=== PATIENT | female | born 1995 | race African-American/Black ===

== ENCOUNTER 2022-08-07 17:06 | Emergency (ER) | payer BC, SELFPAY ==
--- NOTE | ~2022-08-07 | CT_ITS ---
EXAMINATION: CT ABDOMEN AND PELVIS WITH CONTRAST CLINICAL INFORMATION: Right lower quadrant pain COMPARISON: None TECHNIQUE: Multidetector volumetric images were obtained from the superior aspect of the liver through the pubic symphysis following administration 85 mL of Omnipaque 350 intravenous contrast. Sagittal and coronal reformatted images were obtained on the technologist's workstation. Oral contrast: No This CT examination was performed using dose optimization techniques as appropriate, variously including the following: *Automated exposure control *Adjustment of mA and/or kV according to patient size (this includes techniques or standardized protocols for targeted exams where dose is matched to indication/reason for exam; i.e. extremities or head) *Use of iterative reconstruction technique DLP: 547 mGy-cm FINDINGS: LUNG BASES: The visualized lung bases are unremarkable. LIVER, GALLBLADDER, AND BILIARY TREE: The liver is normal in size, shape, and attenuation. No focal hepatic lesion or biliary ductal dilatation is present. There is minor nonspecific periportal edema without biliary ductal dilatation. The gallbladder is unremarkable with no evidence of radiopaque gallstones, gallbladder wall thickening, or obvious pericholecystic inflammatory changes. PANCREAS: Unremarkable. SPLEEN: Unremarkable. ADRENAL GLANDS: Unremarkable. KIDNEYS AND URETERS: The kidneys are normal in size, shape, and attenuation. No hydronephrosis, hydroureter, or calculi seen. No perinephric stranding. BLADDER: Unremarkable. GASTROINTESTINAL TRACT: The small and large bowel are notable for enlargement and plantar changes about the appendix which measures up to 11 mm. Tiny appendicolith suspected. No evidence of perforation.. No free fluid or fluid collections.. ABDOMINAL WALL: No significant hernia is appreciated. LYMPH NODES: Normal. VASCULAR: Unremarkable. PELVIC VISCERA: IUD in place without migration. OSSEOUS STRUCTURES: Unremarkable. CT/CT abdomen pelvis w IV con IMPRESSION: Imaging findings are highly suspicious for acute uncomplicated retrocecal appendicitis. Fleischner guidelines were followed.
--- NOTE | 2022-08-07 17:33 | ED.ABDPAIN ---
HPI - Abdominal Pain General Chief Complaint: Abdominal Pain <Neeru Montelongo CNP - Last Filed: 08/07/22 17:47> Stated Complaint: bloating abd pain <Neeru Montelongo CNP - Last Filed: 08/07/22 17:47> Time Seen by Provider: 08/07/22 18:08 <Neeru Montelongo CNP - Last Filed: 08/07/22 17:47> Source: patient <AIRAM Gaitan - Last Filed: 08/07/22 22:15> Mode of arrival: ambulatory <AIRAM Gaitan Last Filed: 08/07/22 22:15> Limitations: no limitations <AIRAM Gaitan Last Filed: 08/07/22 22:15> History of Present Illness HPI narrative: This is a 27-year-old female presenting to the emergency department with abdominal pain, nausea, diarrhea, subjective fevers and chills for few weeks worsening over the past few days. Patient tells me she recently had an outpatient CT scan done by her PCP in [facility], patient got a call for her to come to the emergency department as they were concerned for acute appendicitis. Patient went to a emergency department near her primary care provider's office who did not have access to the CT, they gave her IV antibiotics and was discharged home with Augmentin for 7 days. Patient tells me she decided to come here today because this is near her home, she also spoke to her PCPs office again which is concerned that patient has appendicitis with appendicolith.Her E Chart shows: CT impression reviewed from patient electronic chart:? dilated appendix with appendicolith and worrisome for acute uncomplicated appendicitis <AIRAM Gaitan - Last Filed: 08/07/22 22:15> Related Data Home Medications: Previous Rx's Medication Instructions Recorded ketorolac 10 mg tablet 10 mg PO TID PRN pain 5 days #15 08/07/22 tabs <Neeru Montelongo CNP - Last Filed: 08/07/22 17:47> Allergies/Adverse Reactions: Allergies Allergy/AdvReac Type Severity Reaction Status Date / Time No Known Allergies Allergy Unverified 04/03/20 19:45 [No Known Allergies*] <Neeru Montelongo CNP - Last Filed: 08/07/22 17:47> Review of Systems Review of Systems Constitutional : No Weight loss, + Fever, + Chills, + Fatigue, + Malaise ENT/Mouth : No sore throat, No Rhinorrhea Eyes: No Eye Pain, No Swelling, No Redness Cardiovascular : No Chest Pain, No SOB, No Dyspnea on Exertion, No Orthopnea, No Edema, No Palpitations Respiratory : No Cough, No Sputum, No Wheezing Gastrointestinal : No Nausea, No Vomiting, No Diarrhea, No Constipation, No abdominal Pain, No Hematochezia, No Melena Genitourinary : No Dysuria, No Urinary Frequency, No Hematuria, Musculoskeletal : No joint pain, No Myalgias, No Joint Swelling Skin : No Skin Lesions, No rash Neuro : No Weakness, No Numbness, No Dizziness, No Headache Psych : No Anxiety/Panic, No Depression All other systems reviewed and are negative <AIRAM Gaitan - Last Filed: 08/07/22 22:15> Yes all other systems are reviewed and are negative <AIRAM Gaitan - Last Filed: 08/07/22 22:15> FOR[facility]LY [facility] Past Medical History Attestation statement: The following information was validated with the patient. <AIRAM Gaitan - Last Filed: 08/07/22 22:15> Source: old records reviewed and nursing notes reviewed <AIRAM Gaitan - Last Filed: 08/07/22 22:15> Social History Social History: Social History Advance Directives: No Advance Directives Information Provided: No <Neeru Montelongo CNP - Last Filed: 08/07/22 17:47> Physical Exam ED Vital Signs: Vital Signs - 24 hr 08/07/22 17:35 08/07/22 19:19 Temperature 97.8 F 98.4 F Pulse Rate 77 60 Respiratory Rate 18 18 Blood Pressure 120/67 111/60 Pulse Oximetry 99 100 Oxygen Delivery Method Room Air Room Air BMI result Body Mass Index 22.8 <Neeru Montelongo CNP - Last Filed: 08/07/22 17:47> Vital Signs - 24 hr 08/07/22 17:35 08/07/22 19:19 Temperature 97.8 F 98.4 F Pulse Rate 77 60 Respiratory Rate 18 18 Blood Pressure 120/67 111/60 Pulse Oximetry 99 100 Oxygen Delivery Method Room Air Room Air BMI result Body Mass Index 22.8 vss <AIRAM Gaitan - Last Filed: 08/07/22 22:15> Appearance: Alert.? Oriented X3.? No acute distress.?Patient appears comfortable Head: Normocephalic, atraumatic, no step-offs or deformities Eyes: Pupils equal, round and reactive to light.? ENT: Pharynx normal.? Neck: Normal inspection.? Neck supple.? CVS: Normal heart rate and rhythm.? Pulses normal.? Respiratory: No respiratory distress.? Breath sounds normal.? Abdomen: Soft and + diffuse abdominal pain particularly to RLQ Skin: Skin warm and dry.? Normal skin color.? Normal skin turgor.? Extremities: No lower extremity edema.? No calf ttp. 5/5 strength to bilateral upper and lower extremities Back: No midline tenderness, no C-spine tenderness, full range of motion, no CVA tenderness bilaterally Neuro: Oriented X 3.? No motor deficit.? No sensory deficit. CN 2-12 intact <AIRAM Gaitan - Last Filed: 08/07/22 22:15> Course Course Course Narrative: This is an RME: Additional HPI, ROS, PE not included below will be deferred to primary provider. Patient is a 27-year-old female who presents emergency department for evaluation of abdominal pain x 2.5 weeks, nausea, diarrhea, no diarrhea, fevers, chills. Had outpatient CT yesterday from PCP performed in [place], [place], advised for patient to go to ED as there was concern for possible appendicitis. She presented to emergency department [place], we did not have access to the CT, she was given IV antibiotics, a physical exam was performed, and she was discharged home with oral antibiotics; Augmentin. Upon speaking with primary care provider's office today, CT scan was again reviewed, and she was advised to return back to the emergency department. She lives in this area, which is why she presents here today. CT impression reviewed from patient electronic chart: Findings suggestive of dilated appendix with appendicolith and worrisome for acute uncomplicated appendicitis PE: RLQ tenderness upon palpation Plan: labs, urinalysis, defer repeat CT at this time, pending labs, may consider imaging; CT v US <Neeru Montelongo CNP - Last Filed: 08/07/22 17:47> Reevaluation(s) Reevaluation #1: CBC within normal limits. Chemistry with no acute findings requiring intervention. Normal CRP and ESR. UA without infection. Urine negative. Patient continues to appear comfortable and in no acute distress. CT of the abdomen pelvis with highly suspicious findings for acute uncomplicated retrocecal appendicitis. I did have a conversation with general surgeon Dr. Dumas, his recommendations are as long as laboratory studies are okay and patient is comfortable and tolerating p.o. she can be discharged, she should continue taking Augmentin and should follow up with General surgery as soon as possible, I will instruct patient to call General surgery office on Tuesday to see him. I will give her strict return precautions and outlined on her discharge. Educated patient on diagnosis and treatment plan, answered all question, patient verbalizes understanding. At this time patient will be discharged home, advised to return with new or worsening symptoms. Educated on worrisome signs and symptoms and when to return. At this time I feel comfortable discharge home. <AIRAM Gaitan - Last Filed: 08/07/22 22:15> Time: 22:10 <AIRAM Gaitan - Last Filed: 08/07/22 22:15> Medical Decision Making Medical Decision Making [facility] Narrative: 1816 27-year-old female presents with right lower quadrant pain, nausea, subjective fevers and chills x2 and half weeks worsening over the past few days. Had an outpatient CT done by PCP that showed appendicitis. Physical exam with diffuse abd tenderness Concerns for appendicitis/appendicolith. Unlikely acute abdomen, unlikely diverticulitis, cholecystitis, pancreatitis. Will obtain basic labs, repeat CT scan, CRP, ESR, UA. Will consult surgery for further advice <AIRAM Gaitan - Last Filed: 08/07/22 22:15> Differential Diagnosis Differential Diagnoses: The differential diagnosis associated with the presentation includes <AIRAM Gaitan - Last Filed: 08/07/22 22:15> Concerns for appendicitis/appendicolith. Unlikely acute abdomen, unlikely diverticulitis, cholecystitis, pancreatitis. <AIRAM Gaitan - Last Filed: 08/07/22 22:15> Admission/Observation Consideration of admission/observation: Escalation of care including admission/observation considered <AIRAM Gaitan - Last Filed: 08/07/22 22:15> Consult Healthcare Provider Management of the patient was discussed with: [employer] () <AIRAM Gaitan - Last Filed: 08/07/22 22:15> Lab Data MDM Lab Attestation statement: I reviewed the patient's lab results. <AIRAM Gaitan - Last Filed: 08/07/22 22:15> Result Diagrams: 08/07/22 18:28 08/07/22 18:28 <Neeru Montelongo CNP - Last Filed: 08/07/22 17:47> Labs: Lab Results 08/07/22 08/07/22 08/07/22 Range/Units 18:28 18:28 18:28 WBC 10.5 (4.8-10.8) X10*3/uL RBC 4.28 (4.20-5.50) X10*6/uL Hgb 12.1 (12.0-16.0) g/dl Hct 37.6 (37.0-47.0) % MCV 87.9 (80.0-98.0) fL MCH 28.3 (27.0-33.0) pg MCHC 32.2 (31.0-35.0) g/dl RDW 12.6 (11.0-16.0) % Plt Count 294 (160-400) X10*3/uL MPV 10.9 (9.4-12.3) fL Immature Gran % (Auto) 0.2 (0.0-0.4) % Neut % (Auto) 62.7 (45-73) % Lymph % (Auto) 30.2 (20-40) % Imperial % (Auto) 4.6 (2-11) % Eos % (Auto) 1.9 (0-4) % Baso % (Auto) 0.4 (0-2) % Lymph # (Auto) 3.2 (1.2-4.9) X10*3/uL Imperial # (Auto) 0.5 (0.1-1.2) X10*3/uL Eos # (Auto) 0.2 (0.0-0.4) X10*3/uL Baso # (Auto) 0.0 (0.0-0.2) X10*3/uL Abs Immat Gran (auto) 0.02 (0.00-0.03) X10*3/uL Absolute Neuts (auto) 6.6 (2.0-8.3) x10*3/uL Absolute Nucleated RBC 0.000 (0.0-0.012) X10*3/uL Nucleated RBC % (auto) 0.0 (0.0-0.2) /100WBC ESR 8 (0-20) MM/HR Sodium 141 (135-145) mmol/L Potassium 4.0 (3.3-5.1) mmol/L Chloride 108 (96-108) mmol/L Carbon Dioxide 24 (22-29) mmol/L Anion Gap 13 (12-20) BUN 7 L (9-16) mg/dL Creatinine 0.80 (0.5-1.4) mg/dL Estim Creat Clear Calc 109.4 Estimated GFR > 60 Random Glucose 62 (60-115) mg/dL Lactic Acid (0.5-2.0) mmol/L Calcium 9.4 (8.4-10.2) mg/dL Total Bilirubin 0.3 (0.0-1.0) mg/dL AST 13 (5-31) U/L ALT 9 (0-31) U/L Alkaline Phosphatase 75 (39-117) U/L C-Reactive Protein < 0.04 (< or = 0.50) mg/dL Total Protein 6.7 (6.5-8.0) g/dL Albumin 4.0 (3.5-5.0) g/dL Urine Color Urine Appearance Urine pH (5.0-9.0) Ur Specific [place] (1.005-1.025) Urine Protein (Neg-Trace) mg/dL Urine Glucose (UA) (Negative) mg/dL Urine Ketones (Negative) mg/dL Urine Blood (Negative) Urine Nitrite (Negative) Ur Leukocyte Esterase (Negative) Urine Test (NEGATIVE) 08/07/22 08/07/22 08/07/22 Range/Units 18:28 19:25 19:25 WBC (4.8-10.8) X10*3/uL RBC (4.20-5.50) X10*6/uL Hgb (12.0-16.0) g/dl Hct (37.0-47.0) % MCV (80.0-98.0) fL MCH (27.0-33.0) pg MCHC (31.0-35.0) g/dl RDW (11.0-16.0) % Plt Count (160-400) X10*3/uL MPV (9.4-12.3) fL Immature Gran % (Auto) (0.0-0.4) % Neut % (Auto) (45-73) % Lymph % (Auto) (20-40) % Imperial % (Auto) (2-11) % Eos % (Auto) (0-4) % Baso % (Auto) (0-2) % Lymph # (Auto) (1.2-4.9) X10*3/uL Imperial # (Auto) (0.1-1.2) X10*3/uL Eos # (Auto) (0.0-0.4) X10*3/uL Baso # (Auto) (0.0-0.2) X10*3/uL Abs Immat Gran (auto) (0.00-0.03) X10*3/uL Absolute Neuts (auto) (2.0-8.3) x10*3/uL Absolute Nucleated RBC (0.0-0.012) X10*3/uL Nucleated RBC % (auto) (0.0-0.2) /100WBC ESR (0-20) MM/HR Sodium (135-145) mmol/L Potassium (3.3-5.1) mmol/L Chloride (96-108) mmol/L Carbon Dioxide (22-29) mmol/L Anion Gap (12-20) BUN (9-16) mg/dL Creatinine (0.5-1.4) mg/dL Estim Creat Clear Calc Estimated GFR Random Glucose (60-115) mg/dL Lactic Acid 1.4 (0.5-2.0) mmol/L Calcium (8.4-10.2) mg/dL Total Bilirubin (0.0-1.0) mg/dL AST (5-31) U/L ALT (0-31) U/L Alkaline Phosphatase (39-117) U/L C-Reactive Protein (< or = 0.50) mg/dL Total Protein (6.5-8.0) g/dL Albumin (3.5-5.0) g/dL Urine Color Yellow Urine Appearance Clear Urine pH 8.0 (5.0-9.0) Ur Specific [place] 1.020 (1.005-1.025) Urine Protein Negative (Neg-Trace) mg/dL Urine Glucose (UA) Negative (Negative) mg/dL Urine Ketones Negative (Negative) mg/dL Urine Blood Negative (Negative) Urine Nitrite Negative (Negative) Ur Leukocyte Esterase Negative (Negative) Urine Test NEGATIVE (NEGATIVE) <Neeru Montelongo, TREMAINE - Last Filed: 08/07/22 17:47> Lab Results 08/07/22 08/07/22 08/07/22 Range/Units 18:28 18:28 18:28 WBC 10.5 (4.8-10.8) X10*3/uL RBC 4.28 (4.20-5.50) X10*6/uL Hgb 12.1 (12.0-16.0) g/dl Hct 37.6 (37.0-47.0) % MCV 87.9 (80.0-98.0) fL MCH 28.3 (27.0-33.0) pg MCHC 32.2 (31.0-35.0) g/dl RDW 12.6 (11.0-16.0) % Plt Count 294 (160-400) X10*3/uL MPV 10.9 (9.4-12.3) fL Immature Gran % (Auto) 0.2 (0.0-0.4) % Neut % (Auto) 62.7 (45-73) % Lymph % (Auto) 30.2 (20-40) % Imperial % (Auto) 4.6 (2-11) % Eos % (Auto) 1.9 (0-4) % Baso % (Auto) 0.4 (0-2) % Lymph # (Auto) 3.2 (1.2-4.9) X10*3/uL Imperial # (Auto) 0.5 (0.1-1.2) X10*3/uL Eos # (Auto) 0.2 (0.0-0.4) X10*3/uL Baso # (Auto) 0.0 (0.0-0.2) X10*3/uL Abs Immat Gran (auto) 0.02 (0.00-0.03) X10*3/uL Absolute Neuts (auto) 6.6 (2.0-8.3) x10*3/uL Absolute Nucleated RBC 0.000 (0.0-0.012) X10*3/uL Nucleated RBC % (auto) 0.0 (0.0-0.2) /100WBC ESR 8 (0-20) MM/HR Sodium 141 (135-145) mmol/L Potassium 4.0 (3.3-5.1) mmol/L Chloride 108 (96-108) mmol/L Carbon Dioxide 24 (22-29) mmol/L Anion Gap 13 (12-20) BUN 7 L (9-16) mg/dL Creatinine 0.80 (0.5-1.4) mg/dL Estim Creat Clear Calc 109.4 Estimated GFR > 60 Random Glucose 62 (60-115) mg/dL Lactic Acid (0.5-2.0) mmol/L Calcium 9.4 (8.4-10.2) mg/dL Total Bilirubin 0.3 (0.0-1.0) mg/dL AST 13 (5-31) U/L ALT 9 (0-31) U/L Alkaline Phosphatase 75 (39-117) U/L C-Reactive Protein < 0.04 (< or = 0.50) mg/dL Total Protein 6.7 (6.5-8.0) g/dL Albumin 4.0 (3.5-5.0) g/dL Urine Color Urine Appearance Urine pH (5.0-9.0) Ur Specific [place] (1.005-1.025) Urine Protein (Neg-Trace) mg/dL Urine Glucose (UA) (Negative) mg/dL Urine Ketones (Negative) mg/dL Urine Blood (Negative) Urine Nitrite (Negative) Ur Leukocyte Esterase (Negative) Urine Test (NEGATIVE) 08/07/22 08/07/2223 Range/Units 18:28 19:25 19:25 WBC (4.8-10.8) X10*3/uL RBC (4.20-5.50) X10*6/uL Hgb (12.0-16.0) g/dl Hct (37.0-47.0) % MCV (80.0-98.0) fL MCH (27.0-33.0) pg MCHC (31.0-35.0) g/dl RDW (11.0-16.0) % Plt Count (160-400) X10*3/uL MPV (9.4-12.3) fL Immature Gran % (Auto) (0.0-0.4) % Neut % (Auto) (45-73) % Lymph % (Auto) (20-40) % [place] % (Auto) (2-11) % Eos % (Auto) (0-4) % Baso % (Auto) (0-2) % Lymph # (Auto) (1.2-4.9) X10*3/uL [place] # (Auto) (0.1-1.2) X10*3/uL Eos # (Auto) (0.0-0.4) X10*3/uL Baso # (Auto) (0.0-0.2) X10*3/uL Abs Immat Gran (auto) (0.00-0.03) X10*3/uL Absolute Neuts (auto) (2.0-8.3) x10*3/uL Absolute Nucleated RBC (0.0-0.012) X10*3/uL Nucleated RBC % (auto) (0.0-0.2) /100WBC ESR (0-20) MM/HR Sodium (135-145) mmol/L Potassium (3.3-5.1) mmol/L Chloride (96-108) mmol/L Carbon Dioxide (22-29) mmol/L Anion Gap (12-20) BUN (9-16) mg/dL Creatinine (0.5-1.4) mg/dL Estim Creat Clear Calc Estimated GFR Random Glucose (60-115) mg/dL Lactic Acid 1.4 (0.5-2.0) mmol/L Calcium (8.4-10.2) mg/dL Total Bilirubin (0.0-1.0) mg/dL AST (5-31) U/L ALT (0-31) U/L Alkaline Phosphatase (39-117) U/L C-Reactive Protein (< or = 0.50) mg/dL Total Protein (6.5-8.0) g/dL Albumin (3.5-5.0) g/dL Urine Color Yellow Urine Appearance Clear Urine pH 8.0 (5.0-9.0) Ur Specific [place] 1.020 (1.005-1.025) Urine Protein Negative (Neg-Trace) mg/dL Urine Glucose (UA) Negative (Negative) mg/dL Urine Ketones Negative (Negative) mg/dL Urine Blood Negative (Negative) Urine Nitrite Negative (Negative) Ur Leukocyte Esterase Negative (Negative) Urine Test NEGATIVE (NEGATIVE) <AIRAM Gaitan - Last Filed: 08/07/22 22:15> Independent Interpretation I performed an independent interpretation of an: CT Scan (CT/CT abdomen pelvis w IV con IMPRESSION: Imaging findings are highly suspicious for acute uncomplicated retrocecal appendicitis. Fleischner guidelines were followed.) <AIRAM Gaitan - Last Filed: 08/07/22 22:15> Radiology Impression Discussion of test interpretation with radiology: I have reviewed the radiologist's reading. <AIRAM Gaitan - Last Filed: 08/07/22 22:15> Prescription Management I considered prescription management with: Pain Medication (Toradol) <AIRAM Gaitan - Last Filed: 08/07/22 22:15> Core Measures AMI core measures followed: Yes <AIRAM Gaitan - Last Filed: 08/07/22 22:15> Measure exclusions: not indicated <AIRAM Gaitan Last Filed: 08/07/22 22:15> Medications Administered Discontinued Medications Generic Name Dose Route Start Last Admin Trade Name Freq PRN Reason Stop Dose Admin Sodium Chloride 1,000 mls @ 999 mls/hr 08/07/22 18:30 08/07/22 19:52 Ns IV 08/07/22 19:30 Infused .Q1H1M BRIE Infusion Iohexol 100 ml 08/07/22 19:59 08/07/22 19:59 Iohexol 350 Mg/Ml 100 Ml Infus..Btl IV 08/07/22 20:00 85 ml ONCE ONE Administration Ketorolac Tromethamine 30 mg 08/07/22 18:16 08/07/22 18:44 Ketorolac Tromethamine 15 Mg/Ml Vial IVPUSH 08/07/22 18:17 30 mg ONCE ONE Administration <Neeru Montelongo CNP - Last Filed: 08/07/22 17:47> Medications Administered Discontinued Medications Generic Name Dose Route Start Last Admin Trade Name Ladan PRN Reason Stop Dose Admin Sodium Chloride 1,000 mls @ 999 mls/hr 08/07/22 18:30 08/07/22 19:52 Ns IV 08/07/22 19:30 Infused .Q1H1M BRIE Infusion Iohexol 100 ml 08/07/22 19:59 08/07/22 19:59 Iohexol 350 Mg/Ml 100 Ml Infus..Btl IV 08/07/22 20:00 85 ml ONCE ONE Administration Ketorolac Tromethamine 30 mg 08/07/22 18:16 08/07/22 18:44 Ketorolac Tromethamine 15 Mg/Ml Vial IVPUSH 08/07/22 18:17 30 mg ONCE ONE Administration <AIRAM Gaitan - Last Filed: 08/07/22 22:15> Critical Care Time Critical Care Time Critical Care Time: Yes <AIRAM Gaitan - Last Filed: 08/07/22 22:15> Total Critical Care Time: 35 <AIRAM Gaitan - Last Filed: 08/07/22 22:15> Attestation: I attest to this time spent taking care of the patient, obtaining history, physical, reviewing labs, imaging, speaking to my attending, speaking to specialist. <AIRAM Gaitan - Last Filed: 08/07/22 22:15> Discharge Plan Discharge Clinical Impression: Abdominal pain, Retrocecal appendicitis <Neeru Montelongo CNP - Last Filed: 08/07/22 17:47> Patient Disposition: Home, Self-Care <Neeru Montelongo CNP - Last Filed: 08/07/22 17:47> Instructions: Abdominal Pain (ED) <Neeru Montelongo CNP - Last Filed: 08/07/22 17:47> Additional Instructions: Take your medications as prescribed. If you were prescribed antibiotics today, it is important that you take your medication to their entirety, do not skip any doses, do not finish them early. Follow-up with your primary care provider this week. Return to the emergency department with new or worsening symptoms. Such as fevers, chills, chest pain, shortness of breath, nausea, vomiting, dizziness, headache, vision changes, lethargy, not tolerating foods by mouth, worsening pain, changes in quality of pain. In case of emergency call 911 Toradol has been sent to your pharmacy, you tolerated this well in the department. Please take this as prescribed do not take this with ibuprofen, or other NSAIDs, do not mix this with alcohol. Side effects of this medication including increased risk for bleeding and possible kidney injury. Suggestions from up-to-date: Nonoperative management ? Nonoperative treatment is a strategy in which patients receive antibiotics with the aim of avoiding surgery. For these patients, appendectomy is reserved for those who do not have a response to antibiotics or have recurrence of appendicitis. Nonoperative management may offer certain benefits such as expedited recovery and reduced days away from work or other activities. In exchange, patients must be counselled and be willing to accept greater uncertainties of possible disease progression despite antibiotics, disease recurrence, or missed neoplasm <Neeru Montelongo CNP - Last Filed: 08/07/22 17:47> Prescriptions: New ketorolac 10 mg tablet 10 mg PO TID PRN (Reason: pain) 5 Days Qty: 15 0RF Rx Instructions: Tolerated IM in the department <Neeru Montelongo CNP - Last Filed: 08/07/22 17:47> Referrals: Babak Dumas MD [Physician] - 2 days <Neeru Montelongo CNP - Last Filed: 08/07/22 17:47> Stand Alone Forms: Work/School Release <Neeru Montelongo CNP - Last Filed: 08/07/22 17:47>
[2022-08-07 17:35] VITALS: BP 120/67; PULSE 77; RESP 18; TEMP 36.6; O2SAT 99; BMI 22.8
[2022-08-07 18:36] LABS: MANUAL DIFF FLAG NO
[2022-08-07 18:37] LABS: Basophils Percent Auto 0.4 % (0-2); Eosinophils Absolute Auto 0.2 X10*3/uL (0.0-0.4); Eosinophils Percent Auto 1.9 % (0-4); Hematocrit 37.6 % (37.0-47.0); Hemoglobin 12.1 g/dl (12.0-16.0); Imm Gran Abs Auto 0.02 X10*3/uL (0.00-0.03); Imm Gran Pct Auto 0.2 % (0.0-0.4); Lymphocytes Absolute Auto 3.2 X10*3/uL (1.2-4.9); Lymphocytes Percent Auto 30.2 % (20-40); Mean Corpuscular HGB Conc 32.2 g/dl (31.0-35.0); Mean Corpuscular Hemoglobin 28.3 pg (27.0-33.0); Mean Corpuscular Volume 87.9 fL (80.0-98.0); Mean Platelet Volume 10.9 fL (9.4-12.3); Monocytes Absolute Auto 0.5 X10*3/uL (0.1-1.2); Monocytes Percent Auto 4.6 % (2-11); Neutrophils Absolute Auto 6.6 x10*3/uL (2.0-8.3); Neutrophils Percent Auto 62.7 % (45-73); Platelet Count 294 X10*3/uL (160-400); Red Blood Count 4.28 X10*6/uL (4.20-5.50); Red Cell Distribution Width 12.6 % (11.0-16.0); White Blood Count 10.5 X10*3/uL (4.8-10.8)
[2022-08-07] MEDS: Ketorolac Tromethamine 15 MG/ML VIAL 30 MG IVPUSH (18:44)
[2022-08-07] MEDS: 0.9 % Sodium Chloride 1,000 ML 999 ML IV (18:45)
[2022-08-07 19:01] LABS: Lactic Acid 1.4 mmol/L (0.5-2.0)
[2022-08-07 19:11] LABS: Alanine Aminotransferase 9 U/L (0-31); Alkaline Phosphatase 75 U/L (39-117); Anion Gap 13 (12-20); Aspartate Amino Transferase 13 U/L (5-31); Bilirubin Total 0.3 mg/dL (0.0-1.0); Blood Urea Nitrogen 7 mg/dL (9-16); C Reactive Protein < 0.04 mg/dL (< or = 0.50); Calcium 9.4 mg/dL (8.4-10.2); Carbon Dioxide 24 mmol/L (22-29); Chloride 108 mmol/L (96-108); Creatinine Clr Calc Pharmacy 109.4; Estimated Glomerular Filt Rate > 60; Glucose Random 62 mg/dL (60-115); Sodium 141 mmol/L (135-145); Total Protein 6.7 g/dL (6.5-8.0)
[2022-08-07 19:19] VITALS: BP 111/60; PULSE 60; RESP 18; TEMP 36.9; O2SAT 100
[2022-08-07 19:36] LABS: Appearance Urine Clear; Color Urine Yellow; Glucose Urine UA Negative (Negative); Leukocyte Esterase Urine Negative (Negative); Nitrite Urine Negative (Negative); Urine Blood Negative (Negative); Urine Ketones Negative (Negative); Urine Protein Negative (Neg-Trace)
[2022-08-07 19:44] LABS: Erythrocyte Sedimentation Rate 8 MM/HR (0-20)
[2022-08-07 19:48] LABS: UPreg QC Valid YES; Urine Pregnancy NEGATIVE (NEGATIVE)
--- NOTE | 2022-08-07 19:54 | PC.NURSE ---
Assumed care for pt. Pt aox4 resting at the bedside. Breaths are even and unlabored. Reports abd pain, 5/10. Pt pending CT-scan. Loco continue to monitor.
[2022-08-07] MEDS: iohexoL 350 MG/ML 100 ML INFUS..BTL IV (19:59)
[2022-08-07 22:27] VITALS: BP 119/47; PULSE 68; RESP 12; TEMP 36.8; O2SAT 100
--- NOTE | 2022-08-07 22:31 | PC.NURSE ---
Pt aox4. Resting at the bedside in no apparent distress. Reports abd discomfort, 11/24. Denies N/V. Tolerating PO liquids with no difficulty.
--- NOTE | 2022-08-07 22:54 | PC.NURSE ---
IV line removed. Pt tolerated well. Discharge instructions reviewed with pt. Pt verbalizes understanding.
== END 2022-08-07 23:19 | disposition home or self-care (01) ==
PROVIDERS: Nurse Practitioner Family; Physician Assistant; Emergency Provider Internal Medicine
DX: K35.80 Unspecified acute appendicitis (principal); R10.31 Right lower quadrant pain
CPT/HCPCS: 36415; 74177; 80053; 81003; 81025; 83605; 85025; 85652; 86140; 87040; 96361; 96374; 99284; J1885; Q9967

== ENCOUNTER → 2022-08-11 09:31 | Outpatient (BNVA) | payer BC, SELFPAY | PROVIDERS: Visit Provider Surgery | DX: Z13.89 Encounter for screening for other disorder (principal) ==

== ENCOUNTER 2022-08-11 10:24 | Observation (INO) | payer BC, SELFPAY ==
[2022-08-11] VITALS (20 sets, daily range): BP systolic 103–146; BP diastolic 44–76; PULSE 62–95; RESP 16–28; TEMP 36.3–36.8; O2SAT 98–100; BMI 22.6
--- NOTE | 2022-08-11 10:49 | ED_ITS ---
HPI - Abdominal Pain General Chief Complaint: Abdominal Pain Stated Complaint: appendectomy Time Seen by Provider: 08/11/22 10:33 Source: patient Mode of arrival: ambulatory Limitations: no limitations History of Present Illness HPI narrative: 27 year old female diagnosed of appendicitis on 08/07/22, presents to emergency department, after follow up with Dr Dumas, general surgery, with plan for admission for surgery. Pt states she is NPO since before midnight. Serology, blood work and urine studies ordered for pending surgical case. Pt denies any recent illness, sick contacts, paresthesias, weakness, fever, chills, vomiting, constipation, headache, or vision changes. MD elicited complaint: abdominal pain Pertinent past history: other (appendicitis) Related Data Previous Rx's Medication Instructions Recorded ketorolac 10 mg tablet 10 mg PO TID PRN pain 5 days #15 08/07/22 tabs Allergies Allergy/AdvReac Type Severity Reaction Status Date / Time No Known Allergies Allergy Unverified 08/11/22 09:41 [No Known Allergies*] PMFSH Social History Social History Advance Directives: No Physical Exam ED Vital Signs: Vital Signs - 24 hr 08/11/22 10:39 08/11/22 10:42 Pulse Rate 81 81 Respiratory Rate 16 16 Blood Pressure 119/64 119/64 Pulse Oximetry 100 100 Oxygen Delivery Method Room Air Room Air BMI result Body Mass Index 22.6 Course Course Course Narrative: 1150: Plan for surgery at 2 pm. Medical Decision Making Medical Decision Making MDM Narrative: 27 year old female diagnosed of appendicitis on 08/07/22, presents to emergency department, after follow up with Dr Dumas, general surgery, with plan for admission for surgery. Pt states she is NPO since before midnight. Blood work, urine, and serology unremarkable. Dr Dumas in to assess and update pt. Plan for 2 pm surgery. Pt admitted to Dr Dumas's service. Lab Data 08/11/22 11:09 08/11/22 11:09 Labs: Lab Results 08/11/22 08/11/22 08/11/22 Range/Units 10:50 11:09 11:09 WBC 7.6 (4.8-10.8) X10*3/uL RBC 4.33 (4.20-5.50) X10*6/uL Hgb 12.2 (12.0-16.0) g/dl Hct 38.0 (37.0-47.0) % MCV 87.8 (80.0-98.0) fL MCH 28.2 (27.0-33.0) pg MCHC 32.1 (31.0-35.0) g/dl RDW 12.6 (11.0-16.0) % Plt Count 272 (160-400) X10*3/uL MPV 11.1 (9.4-12.3) fL Immature Gran % (Auto) 0.3 (0.0-0.4) % Neut % (Auto) 72.4 (45-73) % Lymph % (Auto) 21.5 (20-40) % [place] % (Auto) 3.7 (2-11) % Eos % (Auto) 1.7 (0-4) % Baso % (Auto) 0.4 (0-2) % Lymph # (Auto) 1.6 (1.2-4.9) X10*3/uL [place] # (Auto) 0.3 (0.1-1.2) X10*3/uL Eos # (Auto) 0.1 (0.0-0.4) X10*3/uL Baso # (Auto) 0.0 (0.0-0.2) X10*3/uL Abs Immat Gran (auto) 0.02 (0.00-0.03) X10*3/uL Absolute Neuts (auto) 5.5 (2.0-8.3) x10*3/uL Absolute Nucleated RBC 0.000 (0.0-0.012) X10*3/uL Nucleated RBC % (auto) 0.0 (0.0-0.2) /100WBC Sodium 139 (135-145) mmol/L Potassium 4.3 (3.3-5.1) mmol/L Chloride 108 (96-108) mmol/L Carbon Dioxide 26 (22-29) mmol/L Anion Gap 9 L (12-20) BUN 7 L (9-16) mg/dL Creatinine 0.84 (0.5-1.4) mg/dL Estim Creat Clear Calc 93.3 Estimated GFR > 60 Random Glucose 88 (60-115) mg/dL Calcium 9.5 (8.4-10.2) mg/dL Total Bilirubin 0.4 (0.0-1.0) mg/dL AST 16 (5-31) U/L ALT 8 (0-31) U/L Alkaline Phosphatase 66 (39-117) U/L Total Protein 6.6 (6.5-8.0) g/dL Albumin 3.8 (3.5-5.0) g/dL Urine Color Yellow Urine Appearance Clear Urine pH 6.0 (5.0-9.0) Ur Specific [place] 1.010 (1.005-1.025) Urine Protein Negative (Neg-Trace) mg/dL Urine Glucose (UA) Negative (Negative) mg/dL Urine Ketones Negative (Negative) mg/dL Urine Blood Negative (Negative) Urine Nitrite Negative (Negative) Ur Leukocyte Esterase Negative (Negative) Urine RBC 0-2 (0-2) /HPF Urine WBC 0-5 (0-5) /HPF Ur Squamous Epith Cells 0-2 (0-2) /HPF Urine Bacteria None Seen (None Seen) Hyaline Casts 0-2 (0-2) /LPF COVID-19 (DEE) (Negative) COVID-19 Clin Com 08/11/22 Range/Units 11:11 WBC (4.8-10.8) X10*3/uL RBC (4.20-5.50) X10*6/uL Hgb (12.0-16.0) g/dl Hct (37.0-47.0) % MCV (80.0-98.0) fL MCH (27.0-33.0) pg MCHC (31.0-35.0) g/dl RDW (11.0-16.0) % Plt Count (160-400) X10*3/uL MPV (9.4-12.3) fL Immature Gran % (Auto) (0.0-0.4) % Neut % (Auto) (45-73) % Lymph % (Auto) (20-40) % [place] % (Auto) (2-11) % Eos % (Auto) (0-4) % Baso % (Auto) (0-2) % Lymph # (Auto) (1.2-4.9) X10*3/uL [place] # (Auto) (0.1-1.2) X10*3/uL Eos # (Auto) (0.0-0.4) X10*3/uL Baso # (Auto) (0.0-0.2) X10*3/uL Abs Immat Gran (auto) (0.00-0.03) X10*3/uL Absolute Neuts (auto) (2.0-8.3) x10*3/uL Absolute Nucleated RBC (0.0-0.012) X10*3/uL Nucleated RBC % (auto) (0.0-0.2) /100WBC Sodium (135-145) mmol/L Potassium (3.3-5.1) mmol/L Chloride (96-108) mmol/L Carbon Dioxide (22-29) mmol/L Anion Gap (12-20) BUN (9-16) mg/dL Creatinine (0.5-1.4) mg/dL Estim Creat Clear Calc Estimated GFR Random Glucose (60-115) mg/dL Calcium (8.4-10.2) mg/dL Total Bilirubin (0.0-1.0) mg/dL AST (5-31) U/L ALT (0-31) U/L Alkaline Phosphatase (39-117) U/L Total Protein (6.5-8.0) g/dL Albumin (3.5-5.0) g/dL Urine Color Urine Appearance Urine pH (5.0-9.0) Ur Specific [place] (1.005-1.025) Urine Protein (Neg-Trace) mg/dL Urine Glucose (UA) (Negative) mg/dL Urine Ketones (Negative) mg/dL Urine Blood (Negative) Urine Nitrite (Negative) Ur Leukocyte Esterase (Negative) Urine RBC (0-2) /HPF Urine WBC (0-5) /HPF Ur Squamous Epith Cells (0-2) /HPF Urine Bacteria (None Seen) Hyaline Casts (0-2) /LPF COVID-19 (DEE) Negative (Negative) COVID-19 Clin Com See Note Discharge Plan Discharge Clinical Impression: Acute appendicitis Patient Disposition: Admitted As Inpatient
[2022-08-11 10:57] LABS: Appearance Urine Clear; Color Urine Yellow; Glucose Urine UA Negative (Negative); Leukocyte Esterase Urine Negative (Negative); Nitrite Urine Negative (Negative); Urine Blood Negative (Negative); Urine Ketones Negative (Negative); Urine Protein Negative (Neg-Trace)
[2022-08-11 10:59] LABS: Bacteria Urine None Seen (None Seen); Hyaline Casts Urine 0-2 /LPF (0-2); RBC Urine 0-2 /HPF (0-2); Squamous Epithelial Cell Urine 0-2 /HPF (0-2); WBC Urine 0-5 /HPF (0-5)
[2022-08-11 11:14] LABS: MANUAL DIFF FLAG NO
[2022-08-11 11:16] LABS: Basophils Percent Auto 0.4 % (0-2); Eosinophils Absolute Auto 0.1 X10*3/uL (0.0-0.4); Eosinophils Percent Auto 1.7 % (0-4); Hemoglobin 12.2 g/dl (12.0-16.0); Imm Gran Abs Auto 0.02 X10*3/uL (0.00-0.03); Imm Gran Pct Auto 0.3 % (0.0-0.4); Lymphocytes Absolute Auto 1.6 X10*3/uL (1.2-4.9); Lymphocytes Percent Auto 21.5 % (20-40); Mean Corpuscular HGB Conc 32.1 g/dl (31.0-35.0); Mean Corpuscular Hemoglobin 28.2 pg (27.0-33.0); Mean Corpuscular Volume 87.8 fL (80.0-98.0); Mean Platelet Volume 11.1 fL (9.4-12.3); Monocytes Absolute Auto 0.3 X10*3/uL (0.1-1.2); Monocytes Percent Auto 3.7 % (2-11); Neutrophils Absolute Auto 5.5 x10*3/uL (2.0-8.3); Neutrophils Percent Auto 72.4 % (45-73); Platelet Count 272 X10*3/uL (160-400); Red Blood Count 4.33 X10*6/uL (4.20-5.50); Red Cell Distribution Width 12.6 % (11.0-16.0); White Blood Count 7.6 X10*3/uL (4.8-10.8)
--- NOTE | 2022-08-11 11:29 | PC.NURSE ---
Coming from surgery follow up, ?appendectomy for today or tomorrow per surgical visit. Reporting diarrhea and bloating. IV established, labs drawn and sent.
[2022-08-11 11:30] LABS: COVID-19 Test Negative (Negative); IDNOW Serial# 16C4AD1C
[2022-08-11 11:42] LABS: Alanine Aminotransferase 8 U/L (0-31); Albumin Level 3.8 g/dL (3.5-5.0); Alkaline Phosphatase 66 U/L (39-117); Anion Gap 9 (12-20); Aspartate Amino Transferase 16 U/L (5-31); Bilirubin Total 0.4 mg/dL (0.0-1.0); Blood Urea Nitrogen 7 mg/dL (9-16); Calcium 9.5 mg/dL (8.4-10.2); Carbon Dioxide 26 mmol/L (22-29); Chloride 108 mmol/L (96-108); Creatinine Clr Calc Pharmacy 93.3; Estimated Glomerular Filt Rate > 60; Glucose Random 88 mg/dL (60-115); Potassium 4.3 mmol/L (3.3-5.1); Sodium 139 mmol/L (135-145); Total Protein 6.6 g/dL (6.5-8.0)
--- NOTE | 2022-08-11 12:10 | P.CONAN_ITS ---
[facility] Active Problems Active Problems: All Active Problems (Updated 08/11/22 @ 11:57 by Jenifer Martel NP) Acute appendicitis (Acute) Surgical History Surgical History No pertinent past surgical history History of Problems with Anesthesia: No Social History Social History Patient Tobacco Use Status: Never used Tobacco Meds Allergies Allergy/AdvReac Type Severity Reaction Status Date / Time No Known Allergies Allergy Verified 08/11/22 13:38 [No Known Allergies*] Active Medications: Current Medications Pharmacy Consult (Consult Rx Perform Med Rec) 1 each MISCELLANE ONCE PRN PRN Reason: Consult order Home Medications Medication Instructions Recorded Confirmed Last Taken Type No Known Home Meds 08/11/22 08/11/22 Unknown History Exam Exam Date and Time: August 11, 2022 1210 Height,Weight and Vital Signs: Height 5 ft 6 in Weight 63.503 kg Last Vital Signs Pulse 81 08/11/22 10:42 Resp 16 08/11/22 10:42 BP 119/64 08/11/22 10:42 Pulse Ox 100 08/11/22 10:42 O2 Del Method 08/11/22 10:42 Pertinent Lab Results Pertinent Lab Results: Laboratory Tests 08/11/22 08/11/22 08/11/22 10:50 11:09 11:09 WBC 7.6 RBC 4.33 Hgb 12.2 Hct 38.0 MCV 87.8 MCH 28.2 MCHC 32.1 RDW 12.6 Plt Count 272 MPV 11.1 Immature Gran % (Auto) 0.3 Neut % (Auto) 72.4 Lymph % (Auto) 21.5 [place] % (Auto) 3.7 Eos % (Auto) 1.7 Baso % (Auto) 0.4 Lymph # (Auto) 1.6 [place] # (Auto) 0.3 Eos # (Auto) 0.1 Baso # (Auto) 0.0 Abs Immat Gran (auto) 0.02 Absolute Neuts (auto) 5.5 Absolute Nucleated RBC 0.000 Nucleated RBC % (auto) 0.0 Sodium 139 Potassium 4.3 Chloride 108 Carbon Dioxide 26 Anion Gap 9 L BUN 7 L Creatinine 0.84 Estim Creat Clear Calc 93.3 Estimated GFR > 60 Random Glucose 88 Calcium 9.5 Total Bilirubin 0.4 AST 16 ALT 8 Alkaline Phosphatase 66 Total Protein 6.6 Albumin 3.8 Urine Color Yellow Urine Appearance Clear Urine pH 6.0 Ur Specific [place] 1.010 Urine Protein Negative Urine Glucose (UA) Negative Urine Ketones Negative Urine Blood Negative Urine Nitrite Negative Ur Leukocyte Esterase Negative Urine RBC 0-2 Urine WBC 0-5 Ur Squamous Epith Cells 0-2 Urine Bacteria None Seen Hyaline Casts 0-2 COVID-19 (DEE) COVID-19 Clin Com 08/11/22 11:11 WBC RBC Hgb Hct MCV MCH MCHC RDW Plt Count MPV Immature Gran % (Auto) Neut % (Auto) Lymph % (Auto) [place] % (Auto) Eos % (Auto) Baso % (Auto) Lymph # (Auto) [place] # (Auto) Eos # (Auto) Baso # (Auto) Abs Immat Gran (auto) Absolute Neuts (auto) Absolute Nucleated RBC Nucleated RBC % (auto) Sodium Potassium Chloride Carbon Dioxide Anion Gap BUN Creatinine Estim Creat Clear Calc Estimated GFR Random Glucose Calcium Total Bilirubin AST ALT Alkaline Phosphatase Total Protein Albumin Urine Color Urine Appearance Urine pH Ur Specific [place] Urine Protein Urine Glucose (UA) Urine Ketones Urine Blood Urine Nitrite Ur Leukocyte Esterase Urine RBC Urine WBC Ur Squamous Epith Cells Urine Bacteria Hyaline Casts COVID-19 (DEE) Negative COVID-19 Clin Com See Note Airway Mallampati Class: I TM Dist: >3cm Neck ROM: Full Loose/Missing/Broken Teeth: No Heart: RRR Lungs: CTA Assessment and Plan Assessment Anesthesia Assessment: Anesthesia Plan Discussed and Chart Reviewed Final Anesthetic Review History of Problems with Anesthesia: No NPO: Yes ASA Class: I and Emergency Final Preanesthetic Review: Meds/Allgs Chart Reviewed, Consent Obtained/Reviewed and Anes Risks/Benef Reviewed Patient Risk: Low Procedure Risk: Low Anesthetic Plan Anesthetic Plan: GA Disposition: Standard PACU
[2022-08-11] MEDS: ondansetron HCL 4 MG/2 ML VIAL IVPUSH ×2 (12:49→19:45)
[2022-08-11] MEDS: Lactated Ringers 1,000 ML 125 ML IVCONT (12:49)
--- NOTE | 2022-08-11 12:54 | P.HPGS_ITS ---
History of Present Illness History of Present Illness Date of Service: 08/11/22 Chief complaint: Appendicitis Narrative: Dina Rebollar is a 27 year old female [facility] [address] [place] [address] Office Visit Report Signed Patient: Dina Rebollar MR#: [id number] : 1995 Acct:[id number] Age/Sex: 27 / F ADM/SER Date: 08/11/22 Loc: HO.HGS ADM/SER Time:930 Attending Provider: Babak Dumas MD cc: Physician,Unknown ; Babak Dumas MD~ Intake Vital Signs ? 08/11/2308:40 Height 5 ft 9 in Weight 170 lb 3.15 oz BMI 25.1 Respiration 16 Intake Visit Reasons:?ER FU [place] Intake Note: Patient here for ER follow up. Patient reports on and off pain 10 with increase nausea and constipation. 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 ? Details The patient is a 27-year-old woman who is seen by way of the emergency department at [facility].? She reports that for about a month, she has had crampy abdominal pain, mucus per rectum but no blood.? She does relate a history for some number of years of GI complaints including constipation, but when her pain worsened, she went to an outside hospital last week and was noted to have appendicitis and started on antibiotics.? Through some inability to view the images, the patient was advised to go to a emergency room closer to her home, and she came to [facility] over the weekend.? She is noted to have a normal white count and a CT scan consistent with a retrocecal appendix.? Patient is been continuing on Augmentin and notes no interval improvement in her sy mptoms.? She is passing gas and tolerating the antibiotics, but she notes ongoing pain that is interfering with her life, sleep and work. As noted, she has a history of GI complaints including constipation and mucus per rectum.? She has never been evaluated by a rubber goods inspector tester for possible irritable bowel syndrome. ? PFSH Social History? Advance Directives:? No Review of Systems Const All systems reviewed & are unremarkable except as noted in HPI and below Reports as per HPI Physical Exam Vital Signs: Last Vital Signs Resp ?16 ?08/11/22 09:40 BMI result Body Mass Index ? 25.1? The patient is non-toxic & in good spirits NC/AT, PERRLA, EOMI Mood, affect & judgment all appear appropriate Sclera anicteric conjunctiva pink and moist Oropharynx is clear with no aphthous ulcers, Mallampati class 1, mucous memb ranes moist Neck is supple with no masses, adenopathy or bruits? Heart is regular, normal S1-S2 no rubs or murmurs Lungs are clear and equal anteriorly with no audible wheezing, rubs or dullness to percussion? Abdomen is overweight with no demonstrable hernias.? No HSM, rebound, rigidity, guarding, masses or bruits are present. Some right lower quadrant discomfort is noted but no peritoneal sign is present. Rectal exam is deferred Skin has good turgor and is free of rashes Extremities free of cyanosis clubbing edema Results Reviewed Results Reviewed: ER visit from 08/07/2022 including labs and diagnostic imaging is reviewed On CT, the patient appears to have a retrocecal appendicitis with appendicolith visualized.? There is no free air to suggest abscess. Assessment & Plan Assessment & Plan (1) Acute appendicitis: ?Code(s): K35.80 - Unspecified acute appendicitis Plan I reviewed the options with the patient and her and recommended allowing antibiotic treatment and explained about the inherent risk of operative intervention at this time and the tissue is exceedingly inflamed and friable.? Explained about the possible need for open surgery and possible ileocecectomy.? The need for an abdominal drain, nasogastric tube in prolonged hospitalization secondary to an ileus as well as the possible need for additional intervention secondary to abscess or other unforeseen complications were reviewed.? The possibility of appendiceal pathology such as tumor or malignancy was reviewed and apparently understood. Patient notes that she is feeling so poorly that she would like to proceed with surgery with the risks.? Given this, we will proceed with a laparoscopic appendectomy, possibly open, possible ileocectomy with the inherent risks of bleeding, infection, need for larger resection known as an ileocectomy was reviewed.? The possible postoperative issues of abscess, bleeding and anastomotic complications were also discussed and apparently understood.? The option of a 2nd opinion was also offered to the patient but declined. Based on [place] criteria, the patient may have irritable bowel syndrome but the passing of mucus and ongoing bowel symptoms and mucus per rectum will need to be investigated by a rubber goods inspector tester, in my opinion.? Patient's PCP will be advised of this recommendation.? The patient is directed to the emergency department to help facilitate additional workup an operative timing.? Her questions seemed to be satisfactorily answered and she seemed understand her options. Coding Level of Care Code New Pt Level 4 (15815) Diagnoses Acute appendicitis? K35.80 Documented By: Babak Dumas MD 08/11/22 0934 Signed By: <Electronically signed by Babak Dumas MD> 08/11/22 1055 PMFSH Social History Social History Advance Directives: No Meds Allergies Allergy/AdvReac Type Severity Reaction Status Date / Time No Known Allergies Allergy Unverified 08/11/22 09:41 [No Known Allergies*] Active Medications: Current Medications Hydromorphone HCl (Hydromorphone Hcl 0.5 Mg/0.5 Ml Syringe) 0.25 mg IVPUSH Q4H PRN; Protocol PRN Reason: Pain, Moderate (Pain Scale 4-6 Lactated Ringer's (Lr) 1,000 mls @ 125 mls/hr IVCONT .Q8H [facility] Last Admin: 08/11/22 12:49 Dose: 125 mls/hr Ondansetron HCl (Ondansetron Hcl 4 Mg/2 Ml Vial) 4 mg IVPUSH Q8H [facility] Last Admin: 08/11/22 12:49 Dose: 4 mg Pharmacy Consult (Consult Rx Perform Med Rec) 1 each MISCELLANE ONCE PRN PRN Reason: Consult order Sodium Chloride (0.9 % Sodium Chloride Flush 3 Ml Syringe) 3 ml IVFLUSH QSHIFT [facility] Physical Exam Vital Signs: Vital Signs: Last Vital Signs Pulse 81 01/25/23 10:42 Resp 16 08/11/22 10:42 BP 119/64 08/11/22 10:42 Pulse Ox 100 08/11/22 10:42 O2 Del Method 08/11/22 10:42 BMI result Body Mass Index 22.6 The patient is non-toxic & in good spirits NC/AT, PERRLA, EOMI Mood, affect & judgment all appear appropriate Sclera anicteric conjunctiva pink and moist Oropharynx is clear with no aphthous ulcers, Mallampati class 1, mucous membranes moist Neck is supple with no masses, adenopathy or bruits? Heart is regular, normal S1-S2 no rubs or murmurs Lungs are clear and equal anteriorly with no audible wheezing, rubs or dullness to percussion? Abdomen is overweight with no demonstrable hernias.? No HSM, rebound, rigidity, guarding, masses or bruits are present. Some right lower quadrant discomfort is noted but no peritoneal sign is present. Rectal exam is deferred Skin has good turgor and is free of rashes Extremities free of cyanosis clubbing edema Results Results Labs: Short CBC 08/11/22 Range/Units 11:09 WBC 7.6 (4.8-10.8) X10*3/uL Hgb 12.2 (12.0-16.0) g/dl Hct 38.0 (37.0-47.0) % Plt Count 272 (160-400) X10*3/uL BMP 08/11/22 11:09 Sodium 139 Potassium 4.3 Chloride 108 Carbon Dioxide 26 BUN 7 L Creatinine 0.84 Calcium 9.5 Liver Function 08/11/22 Range/Units 11:09 Total Bilirubin 0.4 (0.0-1.0) mg/dL AST 16 (5-31) U/L ALT 8 (0-31) U/L Alkaline Phosphatase 66 (39-117) U/L Albumin 3.8 (3.5-5.0) g/dL Urine 08/11/22 Range/Units 10:50 Urine Color Yellow Urine Appearance Clear Urine pH 6.0 (5.0-9.0) Ur Specific [place] 1.010 (1.005-1.025) Urine Protein Negative (Neg-Trace) mg/dL Urine Glucose (UA) Negative (Negative) mg/dL Assessment and Plan (1) Acute appendicitis: Status: Acute Plan Plan I reviewed the options with the patient and her and recommended allowing antibiotic treatment and explained about the inherent risk of operative intervention at this time and the tissue is exceedingly inflamed and friable.? Explained about the possible need for open surgery and possible ileocecectomy.? The need for an abdominal drain, nasogastric tube in prolonged hospitalization secondary to an ileus as well as the possible need for additional intervention secondary to abscess or other unforeseen complications were reviewed.? The possibility of appendiceal pathology such as tumor or malignancy was reviewed and apparently understood. Patient notes that she is feeling so poorly that she would like to proceed with surgery with the risks.? Given this, we will proceed with a laparoscopic roselyn endectomy, possibly open, possible ileocectomy with the inherent risks of bleeding, infection, need for larger resection known as an ileocectomy was reviewed.? The possible postoperative issues of abscess, bleeding and anastomotic complications were also discussed and apparently understood.? The option of a 2nd opinion was also offered to the patient but declined. Based on [place] criteria, the patient may have irritable bowel syndrome but the passing of mucus and ongoing bowel symptoms and mucus per rectum will need to be investigated by a rubber goods inspector tester, in my opinion.? Patient's PCP will be advised of this recommendation.? The patient is directed to the emergency department to help facilitate additional workup an operative timing.? Her questions seemed to be satisfactorily answered and she seemed understand her options. Due to insurance reasons, the patient was referred back to the emergency department for admission and timely surgery. Time Spent With Patient Time: Total time managing care of this patient today ____ minutes. Quality Stroke Does the patient have a stroke diagnosis?: No VTE Prior VTE?: No VTE Risk Level:: Surgical - low VTE Device Contraindication: N/A - Device Ordered VTE Drug Contraindication: Treatment Not Indicated Procedures Date of Service Date of Service: 08/11/22
--- NOTE | 2022-08-11 12:59 | P.OP_ITS ---
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 A retrocecal appendix that was not perfo rated was densely adherent to the cecum.] Indications: [The patient is a 27-year-old woman who denies significant past medical history but does have some chronic lower GI complaints consistent with i rritable bowel syndrome. She was seen in an outside hospital emergency department and identified to have acute appendicitis. She was started on oral antibiotics and sent for follow-up locally here. The patient is had normal white blood cell count and soft abdomen, however she reports unrelenting pains. I recommended continued medical management since this is been going on for several days and will be technically challenging, but the patient wanted to proceed with operative intervention. Consequently, I explained about the plan for a laparoscopic appendectomy, possible open appendectomy and possible ileocecectomy with the inherent risks of bleeding, infection, need for open surgery and a bowel resection, anastomotic complications, ileus, prolonged hospitalization, the possible need for nasogastric tube or drain placement. The patient had some time to discuss options with her and was even given the option of a 2nd opinion. She wanted to proceed with surgery.] Procedure: [The patient was identified in the preoperative holding area again in operating room 2. She had voided her urinary bladder station cook, sequential compression stockings were in place and she received IV cefotetan. She was induced & general endotracheal anesthesia administered with excellent effect and her left arm tucked. An appropriate time-out confirming the procedure and equipment was performed. Preemptive local of Marcaine 0.5% with epinephrine was used at all trocar insertion sites. I began at the supraumbilical midline and after infiltrating local, made a transverse 5 mm skin incision and placed a Veress needle without incident. An appropriate drop test was then performed and a pneumoperitoneum of 15 mmHg was obtained using carbon dioxide. Opening pressure was 5 mmHg. After attaining a pneumoperitoneum to 15 mmHg, the Veress needle was removed and a 5 mm Optiview trocar were a 30 degree 5 mm laparoscopic was used to access the abdomen without incident. Upon entering the abdomen, there was no evidence of injury from the Veress needle, however unusual adhesions from the colon and cecum to the anterior row lateral abdominal wall was present. Next, a 5 mm suprapubic and 12 mm left lower quadrant port were placed using preemptive analgesia and direct laparoscopic vision. The patient was then positioned in Trendelenburg and banked left. Scissors were used to carefully excise the adhesions that were noted on entry. Care was taken to avoid injury to the cecum, ascending colon and the terminal ileum. This lysis of adhesions was required to expose the retrocecal appendix and careful dissection towards the line of Toldt was performed in the cecal area and then up the proximal ascending colon. The appendiceal base was identified in the posterior cecum and a palpable appendicolith present. Additional adhesions from the terminal ileum to the cecum had to carefully be lysed and then a window was made across the base of the appendix on the cecum. An Endo- WIL purple 30 stapler was used to divide the appendiceal base on the cecum with good hemostasis and closure. Next, given the density of the mesoappendix and the inflamed appendix to the retrocecal colon, slow dissection carefully preserving the cecal wall was performed and the mesoappendix was carefully divided with a 5 mm LigaSure. Once the specimen was delivered, it was placed in an Endo-Catch bag and delivered through the 12 mm port. The suction marketing support assistant was used to copiously irrigate the retrocecal area and the cecum return to its normal anatomic location. Hemostasis was good and re-evaluation of the appendiceal/cecal base confirmed adequacy of closure. In assessing for any evidence of bile staining or inferred an enterotomy, none was found. The abdomen was then carefully inspected under lower pressure of 9 mm and then the trocars removed. The 12 mm trocar fascia was closed with 0 Polysorb sutures and skin closed with 4-0 Monocryl subcuticular sutures. The abdomen was then washed and dried, Mastisol and Steri-Strips applied followed by sterile dressings. Patient tolerated the procedure well and was sent extubated the recovery in stable condition, all sponge needle instrument counts were correct x2 The patient's annual was called that [phone] and apprised of the operative findings and outcome. His questions seemed to be satisfactorily answered.]
[2022-08-11 13:01] LABS: UPreg QC Valid YES; Urine Pregnancy NEGATIVE (NEGATIVE)
--- NOTE | 2022-08-11 13:17 | PC.NURSE ---
Report given to surgery
--- NOTE | 2022-08-11 15:59 | PHA.MEDREC ---
Pharmacy Consult ? Medication Reconciliation Pharmacy has completed the medication reconciliation.
[2022-08-11] MEDS: HYDROmorphone HCl 0.5 MG/0.5 ML SYRINGE 0.25 MG IVPUSH ×3 (16:35→21:35)
[2022-08-11] MEDS: oxyCODONE HCl Immed Release 5 MG TABLET PO (18:14)
[2022-08-11] MEDS: Docusate Sodium 100 MG CAPSULE 200 MG PO (19:49)
[2022-08-11] MEDS: Acetaminophen 325 MG TABLET 650 MG PO (19:49)
[2022-08-11] MEDS: Lactated Ringers 1,000 ML 80 ML IVCONT (19:56)
[2022-08-12 04:00] VITALS: BP 128/58; PULSE 80; RESP 16; TEMP 36.6; O2SAT 99
[2022-08-12] MEDS: HYDROmorphone HCl 0.5 MG/0.5 ML SYRINGE 0.25 MG IVPUSH ×2 (04:34→10:28)
[2022-08-12 07:32] LABS: MANUAL DIFF FLAG NO
[2022-08-12 07:38] LABS: Basophils Percent Auto 0.2 % (0-2); Hemoglobin 11.6 g/dl (12.0-16.0); Imm Gran Abs Auto 0.06 X10*3/uL (0.00-0.03); Imm Gran Pct Auto 0.3 % (0.0-0.4); Lymphocytes Absolute Auto 1.5 X10*3/uL (1.2-4.9); Lymphocytes Percent Auto 8.3 % (20-40); Mean Corpuscular HGB Conc 32.2 g/dl (31.0-35.0); Mean Corpuscular Hemoglobin 28.3 pg (27.0-33.0); Mean Corpuscular Volume 87.8 fL (80.0-98.0); Mean Platelet Volume 11.2 fL (9.4-12.3); Monocytes Absolute Auto 0.9 X10*3/uL (0.1-1.2); Monocytes Percent Auto 4.8 % (2-11); Neutrophils Absolute Auto 15.6 x10*3/uL (2.0-8.3); Neutrophils Percent Auto 86.4 % (45-73); Platelet Count 284 X10*3/uL (160-400); Red Cell Distribution Width 12.8 % (11.0-16.0); White Blood Count 18.1 X10*3/uL (4.8-10.8)
--- NOTE | 2022-08-12 07:52 | PM.PNGS ---
Subjective Subjective Date of Service: 08/12/22 Patient reports: feels better, still having pain and tolerating liquids well Interval history: The patient is seen at approximately 715 this morning. She is comfortable reports both shoulder pain and incisional pain. Overall, she reports that the presenting pain from last week and from yesterday in the office has improved and been replaced by incisional pain. She denies any nausea but did experience some vomiting immediate after receiving IV Dilaudid. She notes that in the past, she has had Vicodin for dental procedures and tolerated it with no nausea or vomiting, however would prefer to avoid any narcotics at this point. She otherwise denies pain in her chest, trouble breathing. Physical Exam Vital Signs: Vital Signs: Last Vital Signs Temp 97.8 F 08/12/22 04:00 Pulse 80 08/12/22 04:00 Resp 16 08/12/22 04:00 BP 128/58 L 08/12/22 04:00 Pulse Ox 99 08/12/22 04:00 O2 Del Method 08/12/22 04:00 O2 Flow Rate 1 08/11/22 20:00 BMI result Body Mass Index 22.6 On exam she is in good spirits and nontoxic She has no respiratory distress Her abdomen has some incisional tenderness which is appropriate and no peritoneal sign to percussion is present Dressings are clean dry and intact Objective Data Active Medications Acetaminophen (Acetaminophen 325 Mg Tablet) 650 mg PO Q4H PRN PRN Reason: Pain, Mild (Pain Scale 1-3) Last Admin: 08/11/22 19:49 Dose: 650 mg Documented By: YARA Albuterol Sulfate (Albuterol Sulfate (0.083%) 2.5 Mg/3 Ml Vial.Neb) 2.5 mg INHALE ONCE PRN PRN Reason: Wheezing Docusate Sodium (Docusate Sodium 100 Mg Capsule) 200 mg PO BID BIRE Last Admin: 08/11/22 19:49 Dose: 200 mg Documented By: YARA Fentanyl (Fentanyl Citrate/Pf 100 Mcg/2 Ml Vial) 25 mcg IVPUSH Q5M PRN; Protocol PRN Reason: Pain, Moderate (Pain Scale 4-6 Hydromorphone HCl (Hydromorphone Hcl 0.5 Mg/0.5 Ml Syringe) 0.25 mg IVPUSH Q5M PRN; Protocol PRN Reason: Pain, Severe (Pain Scale 7-10) Last Admin: 08/11/22 16:42 Dose: 0.25 mg Documented By: PAL Hydromorphone HCl (Hydromorphone Hcl 0.5 Mg/0.5 Ml Syringe) 0.25 mg IVPUSH Q2H PRN; Protocol PRN Reason: Pain, Moderate (Pain Scale 4-6 Last Admin: 08/12/22 04:34 Dose: 0.25 mg Documented By: SEFERINO Lactated Ringer's (Lr) 1,000 mls @ 50 mls/hr IVCONT .Q20H [facility] Last Admin: 08/11/22 19:56 Dose: 80 mls/hr Documented By: YARA Ondansetron HCl (Ondansetron Hcl 4 Mg/2 Ml Vial) 4 mg IVPUSH ONCE PRN PRN Reason: Nausea and Vomiting Ondansetron HCl (Ondansetron Hcl 4 Mg/2 Ml Vial) 4 mg IVPUSH Q6H PRN PRN Reason: Nausea and Vomiting Last Admin: 08/11/22 19:45 Dose: 4 mg Documented By: YARA Pharmacy Consult (Consult Rx Perform Med Rec) 1 each MISCELLANE ONCE PRN PRN Reason: Consult order Sodium Chloride (0.9 % Sodium Chloride Flush 3 Ml Syringe) 3 ml IVFLUSH [facility] Last Admin: 08/11/22 22:56 Dose: Not Given Documented By: SEFERINO Non-Admin Reason: IV Running Sodium Chloride (0.9 % Sodium Chloride Flush 3 Ml Syringe) 3 ml IVFLUSH [facility] Last Admin: 08/11/22 22:56 Dose: Not Given Documented By: SEFERINO Non-Admin Reason: Duplicate Order Labs 08/12/22 07:20 08/11/22 11:09 Labs: Laboratory Results - last 24 hr 08/11/22 08/11/22 08/11/22 10:50 10:50 11:09 MCV 87.8 MCH 28.2 MCHC 32.1 RDW 12.6 Plt Count 272 MPV 11.1 Immature Gran % (Auto) 0.3 Neut % (Auto) 72.4 Lymph % (Auto) 21.5 [place] % (Auto) 3.7 Eos % (Auto) 1.7 Baso % (Auto) 0.4 Lymph # (Auto) 1.6 [place] # (Auto) 0.3 Eos # (Auto) 0.1 Baso # (Auto) 0.0 Abs Immat Gran (auto) 0.02 Absolute Neuts (auto) 5.5 Absolute Nucleated RBC 0.000 Nucleated RBC % (auto) 0.0 Anion Gap Estim Creat Clear Calc Estimated GFR Random Glucose Calcium Total Bilirubin AST ALT Alkaline Phosphatase Total Protein Albumin Urine Color Yellow Urine Appearance Clear Urine pH 6.0 Ur Specific [place] 1.010 Urine Protein Negative Urine Glucose (UA) Negative Urine Ketones Negative Urine Blood Negative Urine Nitrite Negative Ur Leukocyte Esterase Negative Urine RBC 0-2 Urine WBC 0-5 Ur Squamous Epith Cells 0-2 Urine Bacteria None Seen Hyaline Casts 0-2 Urine Test NEGATIVE COVID-19 (DEE) COVID-19 [facility] 08/11/22 08/11/22 08/12/22 11:09 11:11 07:20 MCV 87.8 MCH 28.3 MCHC 32.2 RDW 12.8 Plt Count 284 MPV 11.2 Immature Gran % (Auto) 0.3 Neut % (Auto) 86.4 H Lymph % (Auto) 8.3 L [place] % (Auto) 4.8 Eos % (Auto) 0.0 Baso % (Auto) 0.2 Lymph # (Auto) 1.5 [place] # (Auto) 0.9 Eos # (Auto) 0.0 Baso # (Auto) 0.0 Abs Immat Gran (auto) 0.06 H Absolute Neuts (auto) 15.6 H Absolute Nucleated RBC 0.000 Nucleated RBC % (auto) 0.0 Anion Gap 9 L Estim Creat Clear Calc 93.3 Estimated GFR > 60 Random Glucose 88 Calcium 9.5 Total Bilirubin 0.4 AST 16 ALT 8 Alkaline Phosphatase 66 Total Protein 6.6 Albumin 3.8 Urine Color Urine Appearance Urine pH Ur Specific [place] Urine Protein Urine Glucose (UA) Urine Ketones Urine Blood Urine Nitrite Ur Leukocyte Esterase Urine RBC Urine WBC Ur Squamous Epith Cells Urine Bacteria Hyaline Casts Urine Test COVID-19 (DEE) Negative COVID-19 [facility] See Note Procedures Date of Service Date of Service: 08/12/22 Progress Note: A&P Assessment and plan (1) Acute appendicitis: Status: Acute Plan Advanced diet KVO IVF Labs noted. It is unclear whether this is secondary to the acute phase reaction stress of the operation and expected versus other pathology. Will try advancing diet and repeat labs this afternoon at 03:00 o'clock. The patient lacks tachycardia or hemodynamic instability suggestive of staple line leak or enterotomy, but will monitor for now. 0815: pt apprised of plan to recheck labs; questions answered 1305: tolerated a few bites of lunch, no flatus. Pt requested I update her , Master, at the bedside. Will reassess on afternoon rounds. Check CBCD at 1500 Time Spent With Patient Time: Total time managing care of this patient today ____ minutes. Quality Stroke Does the patient have a stroke diagnosis?: No VTE Prior VTE?: No VTE Risk Level:: Surgical - low VTE Device Contraindication: N/A - Device Ordered VTE Drug Contraindication: Treatment Not Indicated
[2022-08-12 07:56] LABS: Anion Gap 12 (12-20); Blood Urea Nitrogen 8 mg/dL (9-16); Calcium 9.6 mg/dL (8.4-10.2); Carbon Dioxide 25 mmol/L (22-29); Chloride 106 mmol/L (96-108); Creatinine Clr Calc Pharmacy 99.2; Estimated Glomerular Filt Rate > 60; Glucose Random 99 mg/dL (60-115); Potassium 4.5 mmol/L (3.3-5.1); Sodium 138 mmol/L (135-145)
[2022-08-12 07:59] VITALS: BP 109/61; PULSE 63; RESP 17; TEMP 36.7; O2SAT 99
--- NOTE | 2022-08-12 08:41 | MHC.CM.PN ---
Addendum entered by Ann Ivory RN 08/12/22 09:06: MILLER 08/12 IN CHART Original Note: PATIENT IS FULLY INDEPENDENT NO DME OR VNA SERVICES FULLY VACCINATED AGAINST COVID-19 PCP IS BRITTON PATEL OF [facility] @ [facility] NO HCP AND CASE MANAGEMENT CAN ASSIST WITH COPY IF PATIENT CHOOSES AN AGENT. DC SUMMARY TO BE FAXED TO DR PATEL @ [phone] UPON DISCHARGE. PATIENT DOES HAVE TRANSPORTATION ARRANGED
[2022-08-12] MEDS: Docusate Sodium 100 MG CAPSULE 200 MG PO (09:47)
[2022-08-12] MEDS: Lactated Ringers 1,000 ML 50 ML IVCONT (09:48)
[2022-08-12 11:33] VITALS: BP 116/55; PULSE 82; RESP 16; TEMP 36.9; O2SAT 99
--- NOTE | 2022-08-12 11:54 | HO.POSTANES ---
Post Anesthesia Evaluation Post Anesthesia Evaluation Vital Signs: Vital Signs Temp Pulse Resp BP Pulse Ox O2 Del Method 08/12/22 11:33 98.5 F 82 16 116/55 L 99 Room Air 08/12/22 07:59 98.0 F 63 17 109/61 99 Room Air 08/12/22 04:00 97.8 F 80 16 128/58 L 99 Room Air Anesthesia: General Endotracheal-GETA Mental Status: Awake Pain Control: Satisfactory Nausea/Vomiting: None Hydration: Adequate Anesthesia-Related Issues: No Anes. Related Issues
[2022-08-12 15:20] LABS: MANUAL DIFF FLAG NO
[2022-08-12 15:23] LABS: Basophils Percent Auto 0.2 % (0-2); Eosinophils Percent Auto 0.2 % (0-4); Hematocrit 34.6 % (37.0-47.0); Hemoglobin 11.3 g/dl (12.0-16.0); Imm Gran Abs Auto 0.06 X10*3/uL (0.00-0.03); Imm Gran Pct Auto 0.4 % (0.0-0.4); Lymphocytes Absolute Auto 2.1 X10*3/uL (1.2-4.9); Lymphocytes Percent Auto 13.1 % (20-40); Mean Corpuscular HGB Conc 32.7 g/dl (31.0-35.0); Mean Corpuscular Hemoglobin 28.6 pg (27.0-33.0); Mean Corpuscular Volume 87.6 fL (80.0-98.0); Neutrophils Percent Auto 80.1 % (45-73); Platelet Count 261 X10*3/uL (160-400); Red Blood Count 3.95 X10*6/uL (4.20-5.50); Red Cell Distribution Width 12.9 % (11.0-16.0); White Blood Count 16.3 X10*3/uL (4.8-10.8)
[2022-08-12 15:53] VITALS: BP 121/56; PULSE 77; RESP 18; TEMP 37; O2SAT 100
--- NOTE | 2022-08-12 15:59 | P.DS_ITS ---
DS: Providers Provider Date of Service: 08/12/22 Date of admission: 08/11/22 12:16 Primary care physician: Nonstaff Physician DS: Diagnosis Discharge Diagnosis (1) Acute appendicitis: Status: Acute DS: Summary Hospital Course Hospital Course: See H&P for full details. Briefly the patient is a 27-year-old woman who presented to an outside hospital with acute retrocecal appendicitis that was originally medically managed. She failed medical management and was taken to surgery on 0 08/11/22 for laparoscopic appendectomy. Intraoperatively, she was noted to have congenital adhesions to her terminal ileum, cecum and ascending colon that were lysed and uneventful appendectomy performed. By postop day 1, she was tolerating a regular diet and passing gas. Her white blood cell count was elevated at 18 off of antibiotics but was trending down to 16 and she had no tachycardia, fever or evidence of infection. Overall condition at the time discharge is improved. Time spent discussing smoking cessation with patient: more than 10 minutes Time Spent with Patient Time attestation: Total time managing care of this patient today ____ minutes. Discharge coordination time: Less than 30 minutes Quality: Safe Use of Opioids Does Pt have an Active Cancer Diagnosis on the Problem List?: No Quality: Stroke Does the patient have a stroke diagnosis?: No Physical Exam Vital Signs: Vital Signs: Last Vital Signs Temp 98.6 F 08/12/22 15:53 Pulse 77 08/12/22 15:53 Resp 18 08/12/22 15:53 BP 121/56 L 08/12/22 15:53 Pulse Ox 100 08/12/22 15:53 O2 Del Method 08/12/22 15:53 O2 Flow Rate 1 08/11/22 20:00 BMI result Body Mass Index 22.6 DS: Data Data Completed and Pending Pending studies at discharge: Pending at discharge 08/11/22 15:26 Surgical [PTH] Routine Labs on day of discharge: Laboratory Results - last 24 hr 08/12/22 08/12/22 08/12/22 07:20 07:20 15:09 WBC 18.1 H 16.3 H RBC 4.10 L 3.95 L Hgb 11.6 L 11.3 L Hct 36.0 L 34.6 L MCV 87.8 87.6 MCH 28.3 28.6 MCHC 32.2 32.7 RDW 12.8 12.9 Plt Count 284 261 MPV 11.2 11.0 Immature Gran % (Auto) 0.3 0.4 Neut % (Auto) 86.4 H 80.1 H Lymph % (Auto) 8.3 L 13.1 L [place] % (Auto) 4.8 6.0 Eos % (Auto) 0.0 0.2 Baso % (Auto) 0.2 0.2 Lymph # (Auto) 1.5 2.1 [place] # (Auto) 0.9 1.0 Eos # (Auto) 0.0 0.0 Baso # (Auto) 0.0 0.0 Abs Immat Gran (auto) 0.06 H 0.06 H Absolute Neuts (auto) 15.6 H 13.0 H Absolute Nucleated RBC 0.000 0.000 Nucleated RBC % (auto) 0.0 0.0 Sodium 138 Potassium 4.5 Chloride 106 Carbon Dioxide 25 Anion Gap 12 BUN 8 L Creatinine 0.79 Estim Creat Clear Calc 99.2 Estimated GFR > 60 Random Glucose 99 Calcium 9.6 Discharge Plan Discharge Patient Disposition: Home, Self-Care Discharge Diagnosis: Retrocecal appendicitis, non-perforated Referrals: Physician,Nonstaff [Primary Care Provider] - 1 Week Babak Dumas MD [Physician] - 1 Week Discharge Medications: New hydrocodone-acetaminophen 5-325 mg tablet 1 tab PO Q4-6H PRN (Reason: pain) Qty: 14 0RF Rx Instructions: Partial Fill upon patient request. Remind patient to purchase stool softener, docusate, 100 mg No Action No Known Home Meds Discharge Orders: Discharge Order (Routine); Ordered 08/12/22 Ordered By: Babak Dumas Diet: Advance to usual diet Activity on Discharge: No heavy lifting Stand Alone Forms: Patient Portal Discharge page Activity Restrictions/Additional Instructions: You had a laparoscopic appendectomy performed by Dr. Dumas. It is normal to fee l some minor abdominal discomfort and shoulder pain due to the gas from the operation. This will resolve over the next 1-2 days, however if you develop severe pain in your abdomen or chest, fevers over 100F, vomiting and are unable to keep liquids down, you should contact Dr. Dumas or report to the nearest emergency department. During your operation, you also had congenital scar tissue that was kinking your terminal ileum (small-bowel) and cecum/right colon that needed to be cut. This is considered a normal variant and nothing further needs to be done at this time. If your incisions become red, swollen and tender, draining pus or have problems, please contact Dr. Dumas report to the nearest emergency department. If you have bandages on your incisions, leave them in place for 48 hours, then remove them. You can shower but not soak in a tub after removing the bandages. If there are paper tapes known as butterflies/Steri-Strips, leave them fall off on their own in 1-2 weeks. You do not need to put another bandage on your incisions and lesser clothing rubs or irritates your incisions. You can shower on Tuesday08/13/22 after you removed your bandages in 48 hours, but do not soak in a tub, go in a pool, or go swimming in a abad pond or ocean. Please let the paper tapes dry after getting them wet. You do not need to replace a bandage on lesser clothing irritates the incision. You may find that pants with an elastic waist or suspenders are more comfortable than pants requiring a belt until your incisions completely heal. Because of the operation, you should not lift more than 20 lb for the next 4 weeks. Any strenuous activity such as lifting more than 20 lb, digging, yoga, any athletic activity, like running, soccer, or other strenuous activity, lifting heavy bags/groceries, swimming, martial arts, or other strenuous athletic activities can cause incisional hernias. If you have any questions regarding a specific activity, please ask Dr. Dumas. Avoiding strenuous activities will minimize the risk of incisional hernias. After a week, at your follow-up visit, Dr. Dumas will discuss returning to work on light duty with you. Since you can perform light duty, you are not disable, but your employer may not allow you to return until you have no restrictions; it is up to you to discuss this issue with your employer, because we cannot disclose your personal health care information. Please bring any paperwork to that follow-up appointment from your employer. Please note that you are not disabled and need to discuss your work restrictions for medical reasons with your employer. If you were prescribed an antibiotic, continue taking the medication as prescribed. The anesthesia from the operation and pain medicine will cause constipation. You can purchase [id number] stool softener known as Colace/docusate, 100 mg and take 2 tablets in the morning with breakfast and 2 tablets in the evening after dinner to minimize this problem. Even if you are not taking narcotics, the anesthesia can cause constipation. Because of your pre-existing bowel difficulties, I would recommend you be seen by a equipment maintenance engineer since the symptoms you have been experiencing can be due to significant health issues that require treatment. Please discuss a referral with your PCP. I will forward records with this recommendation to your primary care provider. You can take [id number] Tylenol/acetaminophen with coln-lml-zayqnuu naproxen or ibuprofen to help with pain. Ice packs are also allowed to minimize pain and swelling. You should eat a high-protein, high-fiber, low-fat diet to optimize healing. Please resume any preoperative medications unless otherwise directed by Dr. Dumas. Please contact your primary care provider for a follow-up appointment in 2 weeks. Care Plan Goals: Allow adequate postoperative healing Health Concerns: Be sure to follow-up with your PCP requesting a gastroenterology referral for your bowel problem Plan of Treatment: Allow adequate postoperative healing for the next month Assessment: Acute appendicitis, status post laparoscopic appendectomy
--- NOTE | 2022-08-13 08:38 | MHC.CM.PN ---
POST DC NOTE- PATIENT DC NIGHT PRIOR DC SUMMARY FAXED TO DR BRITTON PATEL' OFFICE @ [phone]
== END 2022-08-12 17:09 | disposition home or self-care (01) ==
LOC: HO.ED 11:57 → HO.EDOVER 12:37 → HO.S3 16:57
PROVIDERS: Anesthesiology; Nurse Practitioner Family; Surgery; Admitting Provider Physician Assistant Surgical; Emergency Provider Emergency Medicine; PCP Internal Medicine; Visit Provider Physician Assistant Surgical
PROC: 0DTJ4ZZ Resection of Appendix, Percutaneous Endoscopic Approach (ICD-10-PCS; CPT 44970; principal; 2022-08-11 14:00)
DX: K35.80 Unspecified acute appendicitis (principal); Q43.3 Congenital malformations of intestinal fixation; Z20.822 Contact with and (suspected) exposure to COVID-19
CPT/HCPCS: 44970; 49329; 36415; 80048; 80053; 81001; 81025; 85025; 87635; 88304; 96361; 96374; 99221; 99284; 99285; J0131; J1100; J1170; J1885; J2250; J2405; J2550; J3010

== ENCOUNTER → 2022-08-20 12:59 | Outpatient (BNVA) | payer BC, SELFPAY | PROVIDERS: PCP Internal Medicine; Visit Provider Surgery | DX: Z13.89 Encounter for screening for other disorder (principal) ==

== ENCOUNTER → 2022-09-07 10:42 | Outpatient (BNVA) | payer BC, SELFPAY | PROVIDERS: PCP Internal Medicine; Visit Provider Surgery | DX: Z13.89 Encounter for screening for other disorder (principal) ==

== ENCOUNTER 2022-11-10 15:48 | Outpatient (REF) | payer BC, SELFPAY ==
[2022-11-10 19:26] LABS: Folate 11.8 ng/mL (> or = 4.0); TSH reflex Free T4 0.83 uIU/mL (0.32-4.0); Vitamin B12 319 pg/mL (200-900)
[2022-11-16 16:17] LABS: Vitamin D 25-OH, D2 5 ng/mL; Vitamin D 25-OH, D3 16 ng/mL; Vitamin D 25-OH, Total 21 ng/mL (30-100)
== END 2022-11-10 15:49 | disposition home or self-care (01) ==
LOC: HO.LAB 15:48
PROVIDERS: PCP Internal Medicine; Visit Provider Nurse Practitioner Family
DX: E55.9 Vitamin D deficiency, unspecified (principal); K59.00 Constipation, unspecified; R19.7 Diarrhea, unspecified; K58.2 Mixed irritable bowel syndrome
CPT/HCPCS: 36415; 82306; 82607; 82746; 84443